=== PATIENT | male | born 1980 | race Two or more races ===

== ENCOUNTER 2019-03-21 15:45 | Emergency (ER) | payer SELFPAY ==
[~2019-03-21] VITALS: Ht 167.6 cm; Wt 81.6 kg
--- NOTE | 2019-03-21 15:55 | NUR ---
PT BIBRA TO ED BED 14. WAS FOUND SLEEPING IN A BENCH W/ STRONG ETOH SMELL. 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 STABLE VITALS. AWAITING MD ORTIZ.
--- NOTE | 2019-03-21 15:57 | NUR ---
JOANNE MAGAÑA AT BEDSIDE FOR EVAL.
--- NOTE | 2019-03-21 16:00 | NUR ---
HEALTH CARE SANITARY TECHNICIAN AT BEDSIDE FOR BLOOD DRAW.
[2019-03-21 16:05] LABS: BASOPHILS % (AUTO) 0.7 % (0.0-2.0); EOSINOPHILS % (AUTO) 2.5 % (0.0-6.0); HEMATOCRIT 48 % (39-51); HEMOGLOBIN 16.6 g/dL (13.5-17.5); LYMPHOCYTES # (AUTO) 2.4 /CMM (0.8-4.8); LYMPHOCYTES % (AUTO) 43.9 % (20.0-44.0); MEAN CORPUSCULAR HGB CONC 35 g/dl (31.0-36.0); MEAN CORPUSCULAR VOLUME 95 fL (80-96); MONOCYTES # (AUTO) 0.4 /CMM (0.1-1.30); MONOCYTES % (AUTO) 6.7 % (2.0-12.0); NEUTROPHILS # (AUTO) 2.5 /CMM (1.8-8.9); NEUTROPHILS % (AUTO) 46.2 % (43.0-81.0); PLATELET COUNT (AUTO) 341 /CMM (150-450); RED BLOOD CELL COUNT(AUTO) 5.01 MIL/uL (4.5-6.0); WHITE BLOOD COUNT (AUTO) 5.5 K/uL (4.3-11.0)
[2019-03-21 16:14] LABS: CALCIUM, SERUM 8.6 mg/dL (8.5-10.1); POTASSIUM 3.7 mmol/L (3.5-5.1)
[2019-03-21 16:21] LABS: ALBUMIN 4.2 g/dL (3.4-5.0); BILIRUBIN,DIRECT 0.1 mg/dL (0.0-0.2); BILIRUBIN,TOTAL 0.2 mg/dL (0.2-1.0); TOTAL PROTEIN, SERUM 7.7 g/dL (6.4-8.2)
[2019-03-21 16:22] LABS: SALICYLATE 0.7 mg/dL (2.8-20.0)
--- NOTE | 2019-03-21 18:18 | NUR ---
PT AWAKE, AMBULATED TO RESTROOM, STEADY GAIT. SITTER AT BEDSIDE.
--- NOTE | 2019-03-21 19:14 | NUR ---
REPORT TO TRACK HELPER RN FOR JANEEN
--- NOTE | 2019-03-21 21:18 | NUR ---
PT AAOX4. AMBULATORY WITH STEADY GAIT. FRIEND AT BEDSIDE TO AIRLINE DISPATCHER PATIENT. Patient discharged to home in stable condition. Written and verbal after care instructions given. Patient verbalizes understanding of instruction.
[2019-03-21 21:19] VITALS: BP 118/79
== END 2019-03-21 21:20 | disposition home or self-care (01) ==
LOC: ER 15:49
DX: F10.129 Alcohol abuse with intoxication, unspecified (principal); R47.81 Slurred speech; Y90.8 Blood alcohol level of 240 mg/100 ml or more
CPT/HCPCS: 36415; 80048; 80076; 80307; 80329; 85025; 99283; G0480